=== PATIENT | male | born 1965 | race African-American/Black ===

== ENCOUNTER 2023-11-02 15:00 | Emergency (ER) | payer OTHER, BC ==
[~2023-11-02] VITALS: Ht 180.3 cm; Wt 83.9 kg
[2023-11-02 15:00] VITALS: BP_SYST 119; PULSE 74; RESP 18; TEMP 98.9; O2SAT 96
[2023-11-02] MEDS ORDERED: HYDR-4038 PO (17:06)
[2023-11-02] MEDS ORDERED: METO25TA6 PO (17:06)
[2023-11-02] MEDS ORDERED: NOR10 PO (17:06)
[2023-11-02] MEDS ORDERED: ESCI10TA PO (17:06)
[2023-11-02] MEDS ORDERED: MELA5TAB12 PO (17:06)
[2023-11-02] MEDS ORDERED: HYDR25TA4 PO (17:06)
[2023-11-02] MEDS ORDERED: GABA-529 PO (17:06)
[2023-11-02 17:08] LABS: BASOPHILS % (AUTO) 0.4 % (0.0-2.0); EOSINOPHILS # (AUTO) 0.3 K/uL (0.0-0.4); EOSINOPHILS % (AUTO) 3.2 % (0.0-4.0); HEMATOCRIT 45.3 % (36-54); HEMOGLOBIN 15.3 g/dL (14.0-18.0); LYMPHOCYTES % (AUTO) 12.5 % (20.5-51.5); MEAN CORPUSCULAR HEMOGLOBIN 29 pg (27-31); MEAN CORPUSCULAR HGB CONC 34 % (32-36); MEAN CORPUSCULAR VOLUME 86 fL (79.0-98.0); MONOCYTES # (AUTO) 0.4 K/uL (0.0-1.0); MONOCYTES % (AUTO) 4.9 % (1.7-9.3); NEUTROPHILS # (AUTO) 6.4 K/uL (1.8-7.7); PLATELET COUNT (AUTO) 353 K/uL (130-430); RED BLOOD CELL COUNT(AUTO) 5.25 MIL/uL (4.2-6.2); RED CELL DISTRIBUTION WIDTH 15.9 % (9.0-15.0)
[2023-11-02 17:13] LABS: BILIRUBIN,URINE NEGATIVE (NEGATIVE); BLOOD, URINE NEGATIVE (NEGATIVE); CLARITY/URINE CLEAR (CLEAR); COLOR,URINE YELLOW (YELLOW); GLUCOSE,URINE NEGATIVE (NEGATIVE); KETONES,URINE NEGATIVE (NEGATIVE); LEUKOCYTE ESTERASE ,URINE NEGATIVE (NEGATIVE); NITRITE, URINE NEGATIVE (NEGATIVE); PROTEIN URINE NEGATIVE (NEGATIVE); UROBILINOGEN,URINE 0.2 (0.2-1.0)
[2023-11-02 17:17] LABS: ALANINE AMINOTRANSFERASE 16 U/L (12-78); ALBUMIN 3.8 g/dL (3.4-4.8); ANION GAP 9 (5-15); ASPARTATE AMINOTRANSFERASE 11 U/L (10-37); BILIRUBIN,DIRECT 0.1 mg/dL (0.0-0.3); CALCIUM 9.2 mg/dL (8.4-11.0); CARBON DIOXIDE 30 mmol/L (23-29); CHLORIDE 99 mmol/L (98-107); CREATININE 0.96 mg/dL (0.55-1.30); GFR AFRICAN AMERICAN 104 mL/min (>90); GLUCOSE 83 mg/dL (74-106); LIPASE 45 U/L (16-77); SODIUM SERUM 138 mmol/L (136-145); TOTAL BILIRUBIN 0.4 mg/dL (0.0-1.0); TOTAL PROTEIN, SERUM 8.2 g/dL (6.4-8.3); UREA NITROGEN, BLOOD 10 mg/dL (8-21)
[2023-11-02 17:19] LABS: GFR NON AFRICAN-AMERICAN 86 mL/min (>90)
[2023-11-02 17:20] LABS: POTASSIUM 2.9 mmol/L (3.5-5.1)
[2023-11-02] MEDS: POTASSIUM CHLORIDE 20 MEQ TABLET.ER PO ONE (17:52)
[2023-11-02 20:28] VITALS: RESP 19; TEMP 98.9
[2023-11-02 21:06] VITALS: BP_SYST 120; PULSE 85; O2SAT 16
== END 2023-11-02 21:11 ==
LOC: SED 15:00
DX: E87.6 Hypokalemia (principal); R53.1 Weakness; Z79.899 Other long term (current) drug therapy
CPT/HCPCS: 36415; 71045; 80048; 80076; 81001; 81003; 83690; 83735; 84100; 84484; 85025; 93005; 99285